=== PATIENT | male | born 1995 | race African-American/Black ===

== ENCOUNTER 2017-01-10 17:39 | Emergency (ER) | payer OTHER ==
--- NOTE | 2017-01-10 18:16 | ER Document Report ---
ED Psych Disorder / Suicide - General Mode of Arrival: Medic Information source: Patient, Law Enforcement TRAVEL OUTSIDE OF THE [place] IN LAST 30 DAYS: No - HPI Patient complains to provider of: Bizarre behavior Associated symptoms: Other - See above <NICK LEYVA - Last Filed: 01/10/17 18:21> <JACKSON BOWIE - Last Filed: 01/10/17 18:42> - General Chief Complaint: Psych Problem Stated Complaint: bizarre behavior Notes: Patient is a 21 year old male who presents to the emergency department with IVC papers (attached to chart) for psychotic episode. Patient reports that he "flipped out" because he was upset and was found yelling out in the streets when [employer] came. Per mother, patient was eating at the table when he flipped the table over, broke his plate and began shouting, patient was paranoid stating that "everyone knows what's going on". Patient states he has had episodes like this in the past and reports having hallucinations before but currently denies them. Patient denies fever, cough, vomiting, diarrhea, suicidal ideation, and homicidal ideation. Per family, patient was diagnosed with psychosis before and is supposed to be taking medications but does not. Patient's family is and they recently moved to the area. (NICK LEYVA) - Related Data Allergies/Adverse Reactions: No Known Allergies Allergy (Verified 01/10/17 17:44) Past Medical History - General Information source: Patient, Relative - Social History Smoking Status: Never Smoker Frequency of alcohol use: None Family History: Reviewed & Not Pertinent Patient has suicidal ideation: No Patient has homicidal ideation: No <NICK LEYVA - Last Filed: 01/10/17 18:21> Review of Systems - Review of Systems Constitutional: denies: Fever EENT: No symptoms reported Cardiovascular: No symptoms reported Respiratory: denies: Cough Gastrointestinal: denies: Diarrhea, Vomiting Genitourinary: No symptoms reported Male Genitourinary: No symptoms reported Musculoskeletal: No symptoms reported Skin: No symptoms reported Hematologic/Lymphatic: No symptoms reported Neurological/Psychological: denies: Hallucinations, Homicidal ideation, Suicidal ideation -: Yes All other systems reviewed and negative <NICK LEYVA - Last Filed: 01/10/17 18:21> Course - Laboratory Result Diagrams: 01/10/17 18:05 01/10/17 18:05 <NICK LEYVA - Last Filed: 01/10/17 18:21> - Laboratory Result Diagrams: 01/10/17 18:05 01/10/17 18:05 - EKG Interpretation by Me EKG shows normal: Sinus rhythm Rate: Normal - Heart rate 75, early J-point elevation. No evidence of ischemia. QRS is normal. <JACKSON BOWIE - Last Filed: 01/10/17 18:42> - Vital Signs Vital signs: Temp Pulse Resp BP Pulse Ox 98.4 F 85 12 126/62 H 98 01/10/17 17:46 01/10/17 17:46 01/10/17 17:46 01/10/17 17:46 01/10/17 17:46 - Laboratory Laboratory results interpreted by me: 01/10/17 18:05 Seg Neutrophils % 79.2 H Lymphocytes % 12.2 L Scribe Documentation - Scribe Written by Jess:: jess Hill, 01/10/17, 385 acting as scribe for :: Herb <NICK LEYVA - Last Filed: 01/10/17 18:21>
[2017-01-10 18:19] LABS: ABSOLUTE MONOCYTES (AUTO) 0.7 10^3/uL (0.1-1.4); ABSOLUTE NEUT (AUTO) 6.8 10^3/uL (1.7-8.2); BASOPHILS % (AUTO) 0.6 % (0-2); EOSINOPHILS % (AUTO) 0.3 % (0-6); HEMATOCRIT 44.2 % (37.9-51.0); HEMOGLOBIN 14.4 g/dL (13.5-17.0); LYMPHOCYTES % (AUTO) 12.2 % (13-45); MEAN CORPUSCULAR HEMOGLOBIN 28.2 pg (27.0-33.4); MEAN CORPUSCULAR HGB CONC 32.6 g/dL (32.0-36.0); MEAN CORPUSCULAR VOLUME 87 fl (80-97); MONOCYTES % (AUTO) 7.7 % (3-13); RED BLOOD COUNT 5.11 10^6/uL (4.35-5.55); SEGMENTED NEUTROPHILS % (AUTO) 79.2 % (42-78); WHITE BLOOD COUNT 8.6 10^3/uL (4.0-10.5)
[2017-01-10 18:42] LABS: ALANINE AMINOTRANSFERASE 21 U/L (21-72); ALBUMIN 4.8 g/dL (3.5-5.0); ALKALINE PHOSPHATASE 73 U/L (38-126); ANION GAP 14 (5-19); ASPARTATE AMINO TRANSFERASE 17 U/L (17-59); BILIRUBIN,DIRECT 0.2 mg/dL (0.0-0.4); BILIRUBIN,TOTAL 1.6 mg/dL (0.2-1.3); BLOOD UREA NITROGEN 13 mg/dL (7-20); CALCIUM 9.8 mg/dL (8.4-10.2); CARBON DIOXIDE 27 mmol/L (22-30); CHLORIDE 103 mmol/L (98-107); CREATININE RESULT 1.17 mg/dL (0.52-1.25); GLUCOSE 85 mg/dL (75-110); POTASSIUM 4.5 mmol/L (3.6-5.0); SODIUM 144.2 mmol/L (137-145); TOTAL PROTEIN 7.5 g/dL (6.3-8.2)
[2017-01-10 18:45] LABS: ALCOHOL < 10 mg/dL (NONE DETECTED)
[2017-01-10 22:55] LABS: APPEARANCE,URINE CLEAR; BILIRUBIN,URINE NEGATIVE (NEGATIVE); GLUCOSE, URINE NEGATIVE (NEGATIVE); KETONES,URINE NEGATIVE (NEGATIVE); LEUKOCYTE ESTERASE,URINE NEGATIVE (NEGATIVE); NITRITE,URINE NEGATIVE (NEGATIVE); PROTEIN,URINE NEGATIVE (NEGATIVE); URINE SPECIFIC GRAVITY 1.019; UROBILINOGEN,URINE NEGATIVE mg/dL (<2.0)
[2017-01-10 23:07] LABS: URINE BARBITURATES SCREEN NEGATIVE; URINE METHADONE SCREEN NEGATIVE; URINE OPIATES LOW NEGATIVE; URINE PHENCYCLIDINE SCREEN NEGATIVE
--- NOTE | 2017-01-11 11:12 | ER Document Report ---
Doctor's Note Notes: 01/11/17 11:11 Rounds: Chart reviewed and patient interviewed. Patient is standing at bedside eating his cold breakfast. Patient is being evaluated for hallucinations and paranoid thoughts and unusual behavior. He is not on any current outpatient medications. Vital signs are all normal. Lab studies are normal with the exception of being positive for marijuana. Patient appears to be medically stable for transfer or discharge. Aliyah Monreal M.D.
[2017-01-11] MEDS ORDERED: RISPERIDONE 1 MG TABLET PO ONE (19:44)
[2017-01-11 20:25] VITALS: BP 123/75
--- NOTE | 2017-01-12 17:09 | EKG REPORT ---
SEVERITY:- ABNORMAL ECG - SINUS RHYTHM ST ELEVATION SUGGESTS PERICARDITIS : Confirmed by: Ml Montez MD 12-Jan-2017 17:08:49
== END 2017-01-11 19:50 | disposition home or self-care (01) ==
LOC: ER 17:39
DX: F20.9 Schizophrenia, unspecified (principal)
CPT/HCPCS: 36415; 80053; 80307; 81001; 85025; 93005; 93010; 99284

== ENCOUNTER 2018-07-23 10:18 | Emergency (ER) | payer SELFPAY ==
[2018-07-23 10:24] VITALS: BP 133/79
--- NOTE | 2018-07-23 12:06 | ER Document Report ---
ED General - General Chief Complaint: Leg Pain Stated Complaint: RIGHT LEG PAIN Time Seen by Provider: 07/23/18 11:18 TRAVEL OUTSIDE OF THE [place] IN LAST 30 DAYS: No - Related Data Allergies/Adverse Reactions: No Known Allergies Allergy (Verified 07/23/18 10:20) Past Medical History - Social History Smoking Status: Former Smoker Family History: Reviewed & Not Pertinent Renal/ Medical History: Denies: Hx Peritoneal Dialysis Past Surgical History: Reports: Hx Orthopedic Surgery - Immunizations Hx Diphtheria, Pertussis, Tetanus Vaccination: No Physical Exam - Vital signs Vitals: Temp Pulse Resp BP Pulse Ox 98.3 F 83 16 133/79 H 97 07/23/18 10:23 07/23/18 10:23 07/23/18 10:23 07/23/18 10:23 07/23/18 10:23 Course - Vital Signs Vital signs: Temp Pulse Resp BP Pulse Ox 98.3 F 83 16 133/79 H 97 07/23/18 10:23 07/23/18 10:23 07/23/18 10:23 07/23/18 10:23 07/23/18 10:23 Discharge - Discharge Clinical Impression: Injury of meniscus of right knee Qualifiers: Encounter type: initial encounter Qualified Code(s): S83.8X1A - Sprain of other specified parts of right knee, initial encounter Condition: Good Disposition: HOME, SELF-CARE Instructions: Sprained Knee ([facility]) Additional Instructions: He was seen today in the emergency department for your knee pain. Your x-rays do not show any obvious breaks or injuries in the knee. It is possible that you will need an MRI to look for more injury to the leg. Schedule an appointment with the doctor provided to you Swetha Gomes. Return for worsening pain and inability to walk or other symptoms. Referrals: SWETHA GOMES MD [ACTIVE STAFF] - Follow up as needed
--- NOTE | 2018-07-23 12:35 | RADIOLOGY REPORT (SQ) ---
EXAM DESCRIPTION: KNEE RIGHT 2 VIEWS COMPLETED DATE/TIME: 07/23/2018 12:15 pm REASON FOR STUDY: knee pain COMPARISON: None. NUMBER OF VIEWS: Two views. TECHNIQUE: AP and lateral radiographic images acquired of the right knee. LIMITATIONS: None. FINDINGS: MINERALIZATION: Fibrous cortical defect distal femur of no clinical significance. BONES: No acute fracture or dislocation. No worrisome bone lesions. JOINT: No effusion. SOFT TISSUES: No soft tissue swelling. No radio-opaque foreign body. OTHER: No other significant finding. IMPRESSION: NO RADIOGRAPHIC EVIDENCE OF ACUTE INJURY. TECHNICAL DOCUMENTATION: JOB ID: [id number] [employer]- All Rights Reserved Reading location - IP/workstation name: [email or web address]
== END 2018-07-23 13:56 | disposition home or self-care (01) ==
LOC: ER 10:18
DX: S83.8X1A Sprain of other specified parts of right knee, initial encounter (principal); X58.XXXA Exposure to other specified factors, initial encounter
CPT/HCPCS: 99283